=== PATIENT | male | born 1940 | race Caucasian/White ===

== ENCOUNTER 2024-09-05 09:26 | Emergency (ER) | payer MEDICARE, OTHER ==
[~2024-09-05] VITALS: Ht 170.2 cm; Wt 56.2 kg
[2024-09-05] MEDS ORDERED: ONDANSETRON 4 MG/2 ML VIAL ONE (10:01)
[2024-09-05] MEDS ORDERED: HYDROMORPHONE 1 MG/1 ML DISP.SYRIN ONE (10:02)
[2024-09-05] MEDS ORDERED: MAGNESIUM SULFATE/D5W 200 ML ONE (10:02)
[2024-09-05] MEDS ORDERED: IOHEXOL 350 100 ML INFUS..BTL ONE (10:08)
[2024-09-05] MEDS ORDERED: SWABABLE VALVE TRANSFER SET EA MC ONE (10:08)
[2024-09-05] MEDS ORDERED: IV NORMAL SALINE 250 ML IV ONE (10:08)
[2024-09-05 10:09] LABS: BASOPHILS # (AUTO) 0.1 K/UL (0.0-0.2); BASOPHILS % (AUTO) 0.6 % (0.0-2.0); EOSINOPHILS % (AUTO) 0.4 % (0.0-7.0); HEMATOCRIT 40.5 % (36.7-47.1); HEMOGLOBIN 13.4 g/dL (12.5-16.3); LYMPHOCYTES # (AUTO) 0.8 K/uL (0.8-4.8); LYMPHOCYTES % (AUTO) 8.2 % (20.5-51.5); MEAN CORPUSCULAR HEMOGLOBIN 29.7 uug (23.8-33.4); MEAN CORPUSCULAR HGB CONC 33 g/dL (32.5-36.3); MEAN CORPUSCULAR VOLUME 89.9 fL (73.0-96.2); MONOCYTES # (AUTO) 0.9 K/uL (0.1-1.30); MONOCYTES % (AUTO) 9.8 % (0.0-11.0); NEUTROPHILS # (AUTO) 7.7 K/uL (1.8-8.9); PLATELET COUNT (AUTO) 184 K/uL (152-348); RED BLOOD CELL COUNT(AUTO) 4.51 MIL/uL (4.06-5.63); RED CELL DISTRIBUTION WIDTH 14.8 % (12.1-16.2); WHITE BLOOD COUNT (AUTO) 9.5 K/uL (3.6-10.2)
[2024-09-05] MEDS: HYDROMORPHONE 1 MG/1 ML DISP.SYRIN IV ONE (10:13)
[2024-09-05] MEDS: ONDANSETRON 4 MG/2 ML VIAL IV ONE (10:13)
[2024-09-05] MEDS: MAGNESIUM SULFATE 2 GM in IV DEXTROSE 5% 100 ML IV ONE (10:13)
[2024-09-05 10:18] LABS: CALCIUM 8.9 mg/dL (8.5-10.1); CARBON DIOXIDE 30 mmol/L (21-32); CHLORIDE 105 mmol/L (98-107); GLUCOSE 140 mg/dL (74-106); POTASSIUM 3.8 mmol/L (3.5-5.1); SODIUM SERUM 140 mmol/L (136-145); UREA NITROGEN, BLOOD 20 mg/dL (7-18)
[2024-09-05 10:26] LABS: ALANINE AMINOTRANSFERASE 18 U/L (16-63); ALBUMIN 3.3 g/dL (3.4-5.0); ALKALINE PHOSPHATASE 104 U/L (50-136); ASPARTATE AMINOTRANSFERASE 16 U/L (15-37); BILIRUBIN,DIRECT 0.2 mg/dL (0.0-0.2); BILIRUBIN,TOTAL 0.7 mg/dL (0.2-1.0); TOTAL PROTEIN, SERUM 6.5 g/dL (6.4-8.2)
[2024-09-05 10:28] LABS: DIFFERENTIAL COMMENT 1
[2024-09-05] MEDS ORDERED: MEMA10TA56 (10:53)
[2024-09-05] MEDS ORDERED: LEVO75TA PO (10:53)
[2024-09-05] MEDS ORDERED: APIX2.5T PO (10:53)
[2024-09-05] MEDS ORDERED: ROSU10TA29 PO (10:53)
[2024-09-05] MEDS ORDERED: ASPI-1420 PO (10:53)
[2024-09-05] MEDS ORDERED: EZET10TA32 PO (10:53)
[2024-09-05] MEDS ORDERED: CHOL200059 PO (10:53)
[2024-09-05 12:04] LABS: *BILIRUBIN,URIN NEGATIVE (NEGATIVE); *CLARITY,URINE CLEAR (CLEAR); *COLOR,URINE YELLOW (YELLOW); *KETONES,URINE NEGATIVE (NEGATIVE); *PROTEIN,URINE NEGATIVE (NEGATIVE); *UROBILINOGEN,URINE 0.2 E.U./dl (NORMAL); LEUKOCYTE ESTERASE ,URINE NEGATIVE (NEGATIVE); NITRITE, URINE NEGATIVE (NEGATIVE); UGLUCOSE NEGATIVE (NEGATIVE)
[2024-09-05 12:28] LABS: *BLOOD, URINE TRACE (NEGATIVE)
[2024-09-05 12:47] LABS: BACTERIA,URINE NONE SEEN /HPF (NONE SEEN); RBC,URINE 0-3 /HPF (0-3); SQUAMOUS EPITHELIAL CELL,UR FEW /HPF (NONE SEEN); WBC,URINE NONE SEEN /HPF (0-3)
[2024-09-05 16:14] VITALS: BP 130/64; O2SAT 97
== END 2024-09-05 16:14 | disposition left against medical advice (07) ==
LOC: ER 09:26
DX: I72.8 Aneurysm of other specified arteries (principal); R07.89 Other chest pain; I77.79 Dissection of other specified artery; R06.02 Shortness of breath; I48.91 Unspecified atrial fibrillation; Z79.890 Hormone replacement therapy; Z88.7 Allergy status to serum and vaccine
CPT/HCPCS: 99291; 71275; 96365; 96375; 71045; 96366; 80076; 80048; 81001; 85025; 85379; 85730; 84484 ×2; 36415; 74177; 93005; 83605; J1171; J3475 ×2; J2405; Q9967; J7040; A4606; A4663